=== PATIENT | female | born 1990 | race Caucasian/White ===

== ENCOUNTER 2016-07-14 23:10 | Emergency (ER) | payer MEDICAID ==
--- NOTE | 2016-07-25 21:15 | ER ---
ADMIT: 07/14/2016 RM/LOC: ER [facility] MR#: [id number] [address] [id number] MACARIO STEVENS [address] [place] [address] Emergency Room Report SEX: F AGE: 25 : 1990 DATE: 07/14/2016 ADDENDUM: CHIEF COMPLAINT: Questionable fever and vomiting today. HISTORY OF PRESENT ILLNESS: This is a 25-year-old, who is about 26 weeks . She started having vomiting earlier today. She thought she was having chills or sweats, so she thought she had a fever. Here, she is afebrile with temp of 98.4, but she is tachycardic at a rate of 119. She has received a liter of fluids now. She feels significantly better. Her pulse is now in the 90s. I am just awaiting her urine. When urine results are back, she will be discharged home. CLINICAL IMPRESSION: Vomiting. JESS Freeman / Joe Bautista MD / bartolol JOB #: [id number] CC: Joe Bautista MD, Attending Physician Kaylyn Galvan MD, Family Physician
[2016-11-17] MEDS ORDERED: PRENATAL VITAM1 EAC6 PO (11:48)
[2016-11-17] MEDS ORDERED: MOTRIN-DPS800 MG PO (11:48)
[2016-11-17] MEDS ORDERED: COLACE-DPS100 MG PO (11:48)
[2016-11-17] MEDS ORDERED: TYLENOL EXTRA500 M1 PO (11:48)
== END 2016-07-15 01:00 | disposition home or self-care (01) ==
LOC: ER 23:10
DX: E86.0 Dehydration (principal); R11.10 Vomiting, unspecified; Z79.899 Other long term (current) drug therapy

== ENCOUNTER 2016-10-07 17:45 | Outpatient (CLI) | payer MEDICAID ==
[2016-11-17] MEDS ORDERED: PRENATAL VITAM1 EAC6 PO (11:48)
[2016-11-17] MEDS ORDERED: MOTRIN-DPS800 MG PO (11:48)
[2016-11-17] MEDS ORDERED: TYLENOL EXTRA500 M1 PO (11:48)
[2016-11-17] MEDS ORDERED: COLACE-DPS100 MG PO (11:48)
== END 2016-10-07 19:55 | disposition home or self-care (01) ==
LOC: BC 17:45 → 2LDRP 17:45 → BC 19:55
DX: O47.03 False labor before 37 completed weeks of gestation, third trimester (principal); Z3A.34 34 weeks gestation of pregnancy